=== PATIENT | female | born 1955 | race Caucasian/White ===

== ENCOUNTER 2019-10-22 05:46 | Emergency (ER) | payer OTHER ==
[2019-10-22] MEDS ORDERED: Acetaminophen 325 MG Tab PO ONE (06:12)
--- NOTE | 2019-10-22 06:15 | EDM.PDOC ---
<PieteriglesiamallyLit A - Last Filed: 10/22/19 08:23> ED HPI GENERAL MEDICAL PROBLEM - General Stated Complaint: RT KNEE HURTS Time Seen by Provider: 10/22/19 05:53 5 Pain Score (Numeric/FACES): 5 - Related Data Allergies Allergy/AdvReac Type Severity Reaction Status Date / Time No Known Allergies Allergy Verified 10/22/19 06:18 Home Meds: Home Meds Loratadine 10 mg PO 10/22/19 [History] Metoprolol Tartrate 25 mg PO 10/22/19 [History] Rosuvastatin Calcium 10 mg PO 10/22/19 [History] Triamterene/Hydrochlorothiazid [Triamterene-HCTZ 75-50 MG] 1 each PO 10/22/19 [History] Course - Re-Assessments/Exams Free Text/Narrative Re-Assessment/Exam: 10/22/19 07:30 radiology has called and notes lucency on tibial plateau concerning for possible fracture; recommend CT imaging to r/o fracture. Departure - Departure Time of Disposition: 07:20 Disposition: Home, Self-Care 01 Condition: Good Clinical Impression: Tibial plateau fracture Qualifiers: Encounter type: initial encounter Fracture type: closed Laterality: right Qualified Code(s): S82.141A - Displaced bicondylar fracture of right tibia, initial encounter for closed fracture - Discharge Information Instructions: Tibial Plateau Fracture Rehab-SportsMed, How to Use a Knee Immobilizer, Kanx-pf-Poal Referrals: PCP,None [Primary Care Provider] - Forms: ED Department Discharge Additional Instructions: The following information is given to patients seen in the emergency department who are being discharged to home. This information is to outline your options for follow-up care. We provide all patients seen in our emergency department with a follow-up referral. The need for follow-up, as well as the timing and circumstances, are variable depending upon the specifics of your emergency department visit. If you don't have a primary care physician on staff, we will provide you with a referral. We always advise you to contact your personal physician following an emergency department visit to inform them of the circumstance of the visit and for follow-up with them and/or the need for any referrals to a consulting specialist. The emergency department will also refer you to a specialist when appropriate. This referral assures that you have the opportunity for follow-up care with a specialist. All of these measure are taken in an effort to provide you with optimal care, which includes your follow-up. Under all circumstances we always encourage you to contact your private physician who remains a resource for coordinating your care. When calling for follow-up care, please make the office aware that this follow-up is from your recent emergency room visit. If for any reason you are refused follow-up, please contact the [facility] Emergency Department at and asked to speak to the emergency department charge nurse. Please follow up with an orthopedic physician as you may have an internal knee injury requiring further workup: [facility] [address], [address] [facility] [address] <Rosalie Husain - Last Filed: 10/22/19 19:28> ED HPI GENERAL MEDICAL PROBLEM - General Source of Information: Reports: Patient - History of Present Illness INITIAL COMMENTS - FREE TEXT/NARRATIVE: History of present illness: 64-year-old female presenting with right knee pain after a fall 3 hours ago. Patient reports that she frequently falls asleep on the toilet and today she fell asleep and fell off the toilet, rolling her right ankle and landing on her buttocks. Her pain is located primarily in the knee and tailbone area. She reports the pain in that knee was worsened while attempting to bear weight and she has not been able to bear weight well since the fall. She has no foot or ankle pain. Left side is not painful or traumatic. Review of systems: As per history of present illness and below otherwise all systems reviewed and negative. Past medical history: As per history of present illness and as reviewed below otherwise noncontributory. Brain tumor, arthritis Surgical history: As per history of present illness and as reviewed below otherwise noncontributory. Craniotomy Social history: No reported history of drug or alcohol abuse. Never smoker Family history: As per history of present illness and as reviewed below otherwise noncontributory. Physical exam: GEN: no acute distress, well appearing HEENT: Atraumatic, normocephalic, mucous membranes moist, Neck: supple. Lungs: No respiratory distress. Heart: RRR Back: nontender Extremities: Appears to have intact range of motion of the right knee and does not have tenderness over the area, however reports it is painful to bear weight in his knee. No ligamentous instability. No foot or ankle tenderness. No proximal fibular tenderness. Hip range of motion is intact and painless bilaterally. Left lower extremity unremarkable.. Neurovascularly intact. Neuro: Awake, alert, oriented. Neuro Exam nonfocal. Skin: warm, dry, no lesions Diagnostics: [] Therapeutics: [] MDM: Impression: [] Plan: [] Definitive disposition and diagnosis as appropriate pending reevaluation and review of above. Review of Systems - Review of Systems Review Of Systems: See Below (See HPI) ED EXAM, GENERAL - Physical Exam Exam: See Below (See HPI) Course - Vital Signs Text/Narrative:: Patient with R knee pain, fall with twisting of knee. XR with no obvious fracture, but pending radiology read. Signed out to Dr. Hassan pending final read. Patient placed in knee immobilizer and crutches pending final read. Last Recorded V/S: Last Vital Signs Temp 95.9 F L 10/22/19 06:13 Pulse 68 10/22/19 06:13 Resp 18 10/22/19 06:13 BP 156/64 H 10/22/19 06:13 Pulse Ox 95 10/22/19 06:13 - Orders/Labs/Meds Orders: Active Orders 24 hr Category Date Time Status DME for Discharge [COMM] Stat Oth 10/22/19 06:45 Ordered DME for Discharge [COMM] Stat Oth 10/22/19 07:00 Ordered Meds: Medications Discontinued Medications Generic Name Dose Route Start Last Admin Trade Name Galen PRN Reason Stop Dose Admin Acetaminophen 650 mg 10/22/19 06:12 10/22/19 06:51 Tylenol PO 10/22/19 06:13 650 mg NOW ONE Administration - My Orders Last 24 Hours: My Active Orders 10/22/19 06:45 DME for Discharge [COMM] Stat 10/22/19 07:00 DME for Discharge [COMM] Stat - Assessment/Plan Last 24 Hours: My Active Orders 10/22/19 06:45 DME for Discharge [COMM] Stat 10/22/19 07:00 DME for Discharge [COMM] Stat
--- NOTE | 2019-10-22 07:38 | CR ---
RIGHT KNEE 3 VIEWS CLINICAL HISTORY: Trauma, pain. TECHNIQUE: Right knee 3 views. COMPARISON: None. FINDINGS: Faint lucency of the anterior tibial plateau on lateral view. Alignment is within normal limits. Joint spaces are maintained. Small joint effusion on the lateral view. IMPRESSION: Findings equivocal for anterior tibial plateau fracture on lateral view. Consider CT right knee without contrast for further evaluation. Findings discussed with Dr. Devi at 7:25 AM on 10/22/19. Antoni Gomez M.D. [email or web address] BHAVESH/Dictated by: Antoni Gomez MD @ 10/22/2019 7:23:00 AM (Electronically Signed)
--- NOTE | 2019-10-22 08:03 | CT ---
HISTORY: Knee injury. Possible fracture. TECHNIQUE: CT right knee without contrast. COMPARISON: Knee radiographs same day. FINDINGS: Acute comminuted fracture of the anterior aspect of the tibial eminence with several small fragments. Fragments are displaced 3-4 mm anterosuperiorly (axial series 201, image 244). Remainder the tibial eminence is intact. Medial and lateral tibial plateaus are intact. No distal femur, patella, or proximal fibula fracture. Small knee joint effusion. Moderate osteoarthritis in the patellofemoral compartment with joint space narrowing, small marginal osteophytes, and patellar subarticular cyst-like changes. Mild osteoarthritis in the medial and lateral compartments. No lytic or blastic bone lesions. No soft tissue hematoma. No popliteal cyst. IMPRESSION: 1. Acute mildly displaced fracture of the anterior aspect of the tibial eminence. 2. Medial and lateral tibial plateaus are intact. 3. Small knee joint effusion. 4. Tricompartmental osteoarthritis. Please note that all CT scans at this facility use dose modulation, iterative reconstruction, and/or weight-based dosing when appropriate to reduce radiation dose to as low as reasonably achievable. Dictated by King Malik MD @ Oct 22 2019 7:57AM Signed by Dr. King Malik @ Oct 22 2019 8:02AM
== END 2019-10-22 08:43 | disposition home or self-care (01) ==
LOC: MW.ED 05:46
DX: S82.141A Displaced bicondylar fracture of right tibia, initial encounter for closed fracture (principal); X50.1XXA Overexertion from prolonged static or awkward postures, initial encounter; Y92.002 Bathroom of unspecified non-institutional (private) residence as the place of occurrence of the external cause
CPT/HCPCS: 73562; 73700; 99283; A9270; 99282